=== PATIENT | female | born 2000 | race Caucasian/White ===

== ENCOUNTER 2019-06-15 16:17 | Emergency (ER) | payer MEDICAID, SELFPAY ==
[2019-06-15 16:20] VITALS: BP 130/74; PULSE 118; RESP 16; TEMP 36.2; O2SAT 100; BMI 33.9
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
[2019-06-15 17:28] VITALS: RESP 16
[2019-06-15 17:42] VITALS: RESP 16
== END 2019-06-15 17:43 | disposition home or self-care (01) ==
LOC: ED 17:24
PROVIDERS: Emergency Provider Emergency Medicine
DX: S91.202A Unspecified open wound of left great toe with damage to nail, initial encounter (principal); Z72.0 Tobacco use; X58.XXXA Exposure to other specified factors, initial encounter; Y93.89 Activity, other specified; Y92.89 Other specified places as the place of occurrence of the external cause; Y99.8 Other external cause status
CPT/HCPCS: 99282

== ENCOUNTER 2020-02-18 18:12 | Emergency (ER) | payer MEDICAID, SELFPAY ==
[2020-02-18 18:13] VITALS: BP 152/100; PULSE 88; RESP 16; TEMP 36.3; O2SAT 97; BMI 34.4
--- NOTE | 2020-02-18 19:10 | ED.DEP ---
ED Disposition - Plan for ED Patient: Instructions: Understanding Sciatica Referrals: Care Physician,No Primary [Primary Care Provider] -
--- NOTE | 2020-02-18 19:13 | ED.DCSUM_ITS ---
- ER Visit Summary Date of Service: 02/18/20 Chief Complaint: Back pain History of Present Illness: The patient is a 19 F presenting with back pain. Patient states this started approximately 1 week ago. She states she does a lot of heavy lifting at work. She does not recall a specific injury. She has left low back pain radiating to her left leg. She denies weakness. Denies bowel or bladder incontinence. Denies fever. She is 17 weeks . She had an [employer] checkup last week and she states everything was going well. She denies urinary complaints. Denies vaginal bleeding. Denies other complaints. She states she has difficulty swallowing pills and has not taken any medication. Physical Examination: Vitals are stable. Patient is afebrile. Alert no acute distress. HEENT exam is unremarkable. Neck is supple. Lungs are clear and equal bilaterally. Heart is regular rate and rhythm. Abdomen is soft nontender nondistended. Back: Left paraspinal muscle tenderness. Straight leg raise positive at 30 degrees on the right. Normal strength and sensation. Extremities are unremarkable. Normal distal pulses Skin is warm and dry. No focal neurologic deficit. Remainder of exam is unremarkable. Emergency Department Course and Treatment: Patient's symptoms are consistent with sciatica. She has had these symptoms in the past. She is advised to try Tylenol for pain. She is agreeable with this plan. She is given a note for work. Advised return to ED for worsening complaints. Disposition: Discharged home Impression: Sciatica This note was generated with [employer] dictation software. It may contain incorrect words, spelling, and punctuation that were not noted in review of the chart prior to signing ED Disposition - Plan for ED Patient: Instructions: Understanding Sciatica Referrals: Care Physician,No Primary [Primary Care Provider] -
== END 2020-02-18 19:27 | disposition home or self-care (01) ==
LOC: ED 18:44
PROVIDERS: Emergency Provider Emergency Medicine
DX: O26.892 Other specified pregnancy related conditions, second trimester (principal); M54.42 Lumbago with sciatica, left side; Z3A.17 17 weeks gestation of pregnancy
CPT/HCPCS: 99282